=== PATIENT | female | born 1980 | race Caucasian/White ===

== ENCOUNTER 2018-05-27 02:52 | Emergency (ER) | payer MEDICAID ==
[~2018-05-27] VITALS: Ht 152.4 cm; Wt 73.0 kg
[2018-05-27 03:02] VITALS: Ht 152.4 cm; Wt 73.0 kg
[2018-05-27 03:41] LABS: BASOPHIL % 0.6 % (0-2); PLATELET COUNT 315 x10^3mcL (130-400)
[2018-05-27 03:43] LABS: RED CELL DISTRIBUTION WIDTH 15.9 % (11.5-14.5)
[2018-05-27 04:25] LABS: CALCIUM 8.2 mg/dL (8.5-10.1); CARBON DIOXIDE 27.6 mmol/L (21-32); CHLORIDE SERUM 104 mmol/L (98-107); CREATININE SERUM 0.8 mg/dL (0.6-1.0); GFR1 > 60 mL/min; GLUCOSE SERUM 109 mg/dL (74-106); POTASSIUM SERUM 3.8 mmol/L (3.5-5.1); SODIUM SERUM 139 mmol/L (136-145)
[2018-05-27 04:30] LABS: ALBUMIN 3.8 g/dL (3.4-5.0); ALKALINE PHOSPHATASE 83 U/L (46-116); ALT/SGPT 18 U/L (14-59); AST/SGOT 16 U/L (15-37); BILIRUBIN TOTAL 0.16 mg/dL (0.20-1.00); LIPASE 160 IU/L (73-393); TOTAL PROTEIN, SERUM 7.6 g/dL (6.4-8.2)
[2018-05-27 04:45] LABS: microscopic required? YES; urine erythrocyte TRACE (NEGATIVE)
[2018-05-27 06:04] VITALS: BP 111/63
== END 2018-05-27 06:04 | disposition home or self-care (01) ==
LOC: ED 02:52
PROVIDERS: Emergency Medicine
DX: R10.11 Right upper quadrant pain (principal); R19.7 Diarrhea, unspecified; R11.0 Nausea
CPT/HCPCS: J2405; J3010; J7030; Q0092